=== PATIENT | female | born 1975 | race Caucasian/White ===

== ENCOUNTER 2021-06-12 12:55 | Emergency (ER) | payer MEDICAID, SELFPAY ==
[~2021-06-12] VITALS: Ht 165.1 cm; Wt 99.8 kg
[2021-06-12 13:00] VITALS: BP_SYST 136
--- NOTE | 2021-06-12 13:00 | NUR ---
BROUGHT BACK TO OUTSIDE TRIAGE TENT AND TRIAGED. AWAITIING ER ROOM
--- NOTE | 2021-06-12 15:37 | NUR ---
DR SHIELDS OUT TO TRIAGE TENT FOR EVALUATION
--- NOTE | 2021-06-12 15:47 | NUR ---
Patient given written and verbal discharge instructions and verbalizes understanding. ER MD discussed with patient the results and treatment provided. Patient in stable condition. ID arm band removed. Rx of XANAX, IBUPROFEN given. Patient educated on pain management and to follow up with PMD. Pain Scale 0/10. Opportunity for questions provided and answered. Medication side effect fact sheet provided.
== END 2021-06-12 15:47 | disposition home or self-care (01) ==
LOC: SED 12:55
DX: R06.02 Shortness of breath (principal); Z88.0 Allergy status to penicillin; Z91.013 Allergy to seafood; Z20.822 Contact with and (suspected) exposure to COVID-19
CPT/HCPCS: 36415; 93005; 99284

== ENCOUNTER 2023-04-11 12:04 | Emergency (ER) | payer MEDICAID ==
[~2023-04-11] VITALS: Ht 165.1 cm; Wt 99.8 kg
[2023-04-11 12:26] VITALS: BP_SYST 139
--- NOTE | 2023-04-11 13:40 | NUR ---
Note alyssaramonita in EDM - 04/11/23 at 1342 by [email or web address] Pt brought by self, A&Ox4, pt presents to ER with poss bugbite on L elbow, redness and swelling noted, pt afebrile, skin pink and warm, cap refill <3.
--- NOTE | 2023-04-11 13:44 | NUR ---
Pt bought by self, A&Ox4, pt presents to ER with R lower back pain radiating to R leg, skin pink and warm, cap refill <3, VSS
--- NOTE | 2023-04-11 14:10 | NUR ---
Dr Shay evaluating patient at bedside
[2023-04-11] MEDS ORDERED: KETOROLAC TROMETHAMINE 60 MG/2 ML VIAL IM ONE (14:15)
[2023-04-11] MEDS ORDERED: carisoprodoL 350 MG TABLET PO ONE (14:15)
[2023-04-11] MEDS ORDERED: DICL20GE TP (15:49)
[2023-04-11] MEDS ORDERED: DICL75TA5 PO (15:49)
[2023-04-11 15:57] VITALS: BP_SYST 139
--- NOTE | 2023-04-11 15:58 | NUR ---
Patient given written and verbal discharge instructions and verbalizes understanding. ER MD discussed with patient the results and treatment provided. Patient in stable condition. ID arm band removed. Rx of Voltaren tablets and Voltaren ointment given. Patient educated on pain management and to follow up with PMD. Pain Scale 3/10. Opportunity for questions provided and answered. Medication side effect fact sheet provided.
== END 2023-04-11 15:58 | disposition home or self-care (01) ==
LOC: SED 12:04
DX: S39.012A Strain of muscle, fascia and tendon of lower back, initial encounter (principal); M54.31 Sciatica, right side; Z88.0 Allergy status to penicillin; Z91.013 Allergy to seafood; Z79.899 Other long term (current) drug therapy; X58.XXXA Exposure to other specified factors, initial encounter; Y93.89 Activity, other specified; Y92.89 Other specified places as the place of occurrence of the external cause; Y99.8 Other external cause status
CPT/HCPCS: 99283; 72100; 96372; J1885